=== PATIENT | male | born 1995 | race Asian ===

== ENCOUNTER 2017-09-02 05:34 | Emergency (ER) | payer SELFPAY ==
[~2017-09-02] VITALS: Ht 185.4 cm; Wt 137.4 kg
[2017-09-02 06:36] VITALS: BP 140/90
[2017-09-02] MEDS ORDERED: cefTRIAXone SOD 1,000 MG VL IM ONE (07:30)
[2017-09-02] MEDS ORDERED: LIDOCAINE 1% (LOCAL ANESTH.) PF 5ml SDV ONE (07:34)
== END 2017-09-02 07:57 | disposition home or self-care (01) ==
LOC: ER 05:37
DX: L73.9 Follicular disorder, unspecified (principal)
CPT/HCPCS: 99283; J0696

== ENCOUNTER 2021-02-14 10:55 | Emergency (ER) | payer OTHER ==
[~2021-02-14] VITALS: Ht 185.4 cm; Wt 102.1 kg
[2021-02-14] MEDS ORDERED: SODIUM CHLORIDE 0.9% 1,000 ML IV ONE (11:15)
[2021-02-14 11:41] LABS: Basophils # (auto) 0.1 10 ^3/uL (0-0.2); Basophils % (auto) 0.8 % (0.0-2.0); Eosinophils # (auto) 0.1 10 ^3/uL (0-0.8); Eosinophils % (auto) 1.3 % (0.0-7.0); Hematocrit 48.1 % (41.0-53.0); Hemoglobin 16.1 g/dL (13.5-17.5); Lymphocytes # (auto) 2.7 10 ^3/uL (0.4-5.4); Lymphocytes % (auto) 30.6 % (10.0-50.0); Mean Corpuscular Hemoglobin 27.7 pg (28.0-32.0); Mean Corpuscular Hgb Conc. 33.5 g/dL (32.0-36.0); Mean Corpuscular Volume 82.9 fL (80.0-100.0); Monocytes # (auto) 0.7 10 ^3/uL (0-1.3); Monocytes % (auto) 7.4 % (0.0-12.0); Neutrophils # (auto) 5.3 10 ^3/uL (1.6-8.6); Neutrophils % (auto) 59.9 % (37.0-80.0); Nucleated Red Blood Cells % 0.1 %; White Blood Cell 8.9 10^3/uL (4.4-10.8)
[2021-02-14 11:58] LABS: Albumin 3.2 g/dL (3.4-5.0); Anion Gap 10 (5-15); Blood Urea Nitrogen 22 mg/dL (7-18); Calcium 8.7 mg/dL (8.5-10.1); Carbon Dioxide 23 mmol/L (21-32); Chloride 103 mmol/L (98-107); Glucose 321 mg/dL (74-106); Sodium 136 mmol/L (136-145)
[2021-02-14 12:03] LABS: Alanine Aminotransferase 57 U/L (16-61); Alkaline Phosphatase 67 U/L (45-117); Aspartate Aminotransferase 33 U/L (15-37); BUN/Creatinine Ratio 21.6; Bilirubin, Total 0.4 mg/dL (0.2-1.0); GFR African American 114 mL/min; GFR Non-African American 94 mL/min; Total Protein 7.7 g/dL (6.4-8.2)
[2021-02-14 14:33] LABS: Urine Bacteria NONE SEEN /hpf (None Seen); Urine Blood TRACE /uL (Negative); Urine Specific Gravity 1.022 (1.001-1.035); Urine WBC <1 /hpf (0 - 3)
[2021-02-14 17:59] VITALS: BP 147/90
== END 2021-02-14 18:02 | disposition home or self-care (01) ==
LOC: EDBD 10:55 → ER 10:55 → EDUNIT# 10:55 → ER 18:02
DX: I10 Essential (primary) hypertension (principal); E11.65 Type 2 diabetes mellitus with hyperglycemia; Z20.822 Contact with and (suspected) exposure to COVID-19
CPT/HCPCS: 36415; 70450; 71045; 80053; 81001; 83880; 84484; 85025; 87426; 93005; 99285; J7030

== ENCOUNTER 2022-07-07 11:46 | Emergency (ER) | payer OTHER ==
[~2022-07-07] VITALS: Ht 185.4 cm; Wt 0.5 kg
[2022-07-07] MEDS ORDERED: LACTATED RINGER'S 2,000 ML IV ONE ×2 (12:30→14:45)
[2022-07-07 13:28] LABS: Basophils # (auto) 0 10 ^3/uL (0-0.2); Basophils % (auto) 0.2 % (0.0-2.0); Eosinophils # (auto) 0.1 10 ^3/uL (0-0.8); Eosinophils % (auto) 0.7 % (0.0-7.0); Hematocrit 49.7 % (41.0-53.0); Hemoglobin 16.6 g/dL (13.5-17.5); Lymphocytes # (auto) 1.1 10 ^3/uL (0.4-5.4); Lymphocytes % (auto) 7.4 % (10.0-50.0); Mean Corpuscular Hemoglobin 28.3 pg (28.0-32.0); Mean Corpuscular Hgb Conc. 33.4 g/dL (32.0-36.0); Mean Corpuscular Volume 84.8 fL (80.0-100.0); Monocytes # (auto) 0.7 10 ^3/uL (0-1.3); Monocytes % (auto) 4.7 % (0.0-12.0); Neutrophils # (auto) 12.6 10 ^3/uL (1.6-8.6); Red Blood Cells 5.86 10^6/uL (4.5-5.90); Red Cell Distribution Width 13.3 % (11.8-14.3); White Blood Cell 14.5 10^3/uL (4.4-10.8)
[2022-07-07 13:42] LABS: Potassium 4.2 mmol/L (3.5-5.1)
[2022-07-07 13:43] LABS: Albumin 4.1 g/dL (3.4-5.0); Calcium 9.3 mg/dL (8.5-10.1); Magnesium 1.3 mg/dL (1.6-2.6)
[2022-07-07 13:46] LABS: BUN/Creatinine Ratio 22.3; Bilirubin, Total 1.2 mg/dL (0.2-1.0); Total Protein 8.8 g/dL (6.4-8.2)
[2022-07-07 13:47] LABS: Lactic Acid w/Reflex 2.7 mmol/L (0.4-2.0)
[2022-07-07] MEDS ORDERED: ONDANSETRON HCL 4 MG/2 ML VIAL IV ONE (14:00)
[2022-07-07] MEDS ORDERED: MAGNESIUM SULFATE 1GM/100ML 100 ML IV ONE (14:00)
[2022-07-07] MEDS ORDERED: IOHEXOL 350 MG/ML 100ML IJ ONE (14:06)
[2022-07-07] MEDS ORDERED: metroNIDAZOLE 500MG/100ML 100 ML IV ONE (14:45)
[2022-07-07] MEDS ORDERED: InsuLIN REG 1unit/0.01ml Soln (100units/ml) IV ONE ×2 (14:45→18:30)
[2022-07-07] MEDS ORDERED: ACETAMINOPHEN 500 MG TAB PO ONE (14:45)
[2022-07-07] MEDS ORDERED: cefTRIAXone 1GM/50ML D5W 50 ML IV ONE (14:45)
[2022-07-07 16:30] LABS: Urine Bacteria NONE SEEN /hpf (None Seen); Urine Blood Negative /uL (Negative); Urine WBC <1 /hpf (0 - 3)
[2022-07-07 17:00] LABS: Urine Specific Gravity > 1.050 (1.001-1.035)
[2022-07-07 20:30] VITALS: BP 147/74
== END 2022-07-07 20:23 | disposition short-term general hospital (02) ==
LOC: ER 11:46
DX: A41.9 Sepsis, unspecified organism (principal); E11.9 Type 2 diabetes mellitus without complications; I10 Essential (primary) hypertension; E11.65 Type 2 diabetes mellitus with hyperglycemia; E87.4 Mixed disorder of acid-base balance; R74.02 Elevation of levels of lactic acid dehydrogenase [LDH]; Z20.822 Contact with and (suspected) exposure to COVID-19
CPT/HCPCS: 36415; 36600; 71045; 74177; 76705; 80053; 81001; 82010; 82805; 82962; 83605; 83690; 83735; 83880; 84484; 85025; 87040; 87086; 87426; 87804; 93005; 96361; 96365; 96367; 96368; 96375; 96376; 99291; J0696; J1815; J2405; J3475; J3490; Q9967